=== PATIENT | female | born 1970 | race Caucasian/White ===

== ENCOUNTER 2021-02-15 11:17 | Emergency (ER) | payer MEDICARE, MEDICAID, SELFPAY ==
--- NOTE | 2021-02-15 11:24 | ED.URI ---
HPI - URI/Sore Throat General Chief Complaint: Upper Respiratory Infection Stated Complaint: Possible sinus and right Ear infection Time Seen by Provider: 02/15/21 11:39 Source: patient and RN notes reviewed Mode of arrival: ambulatory Limitations: no limitations History of Present Illness HPI Narrative: 50-year-old female presents concern for two 3-day history of sinus pressure, nasal drainage, postnasal drainage, cough. She reports low-grade temperature and chills. Denies fever, body aches, sweats. She denies [id number] intervention. MD elicited complaint: nasal congestion Related Data Home Medications Medication Instructions Recorded Confirmed escitalopram oxalate mg 02/15/21 hydrocodone-acetaminophen tablet 02/15/21 lamotrigine 02/15/21 lorazepam 02/15/21 lurasidone [Latuda] mg 02/15/21 omeprazole 02/15/21 simvastatin mg 02/15/21 trazodone 02/15/21 Allergies Allergy/AdvReac Type Severity Reaction Status Date / Time No Known Allergies Allergy Verified 02/15/21 11:37 Review of Systems Review of Systems: Narrative: CONSTITUTIONAL: Denies malaise, sweats. Reports chills and fever. EYES: Denies visual changes, redness, or discharge. ENT: Reports rhinorrhea, congestion, sinus pain, otalgia. Denies sore throat. CARDIOVASCULAR: Denies chest pain, palpitations, or edema. RESPIRATORY: Reports cough. Denies dyspnea. GASTROINTESTINAL: Denies abdominal pain, nausea, vomiting, diarrhea SKIN: Denies rash or itching. MUSCULOSKELETAL: Denies myalgia. NEUROLOGIC: Denies headache.. All systems reviewed & are unremarkable except as noted in HPI and below PMFSH Comments At time of signature, agree with nursing past medical, surgical, social and family history. There is no relevant family history pertinent to the presenting complaint Exam Narrative: Exam Narrative: GENERAL: Well-appearing, well-nourished, and in no acute distress. HEAD: Normocephalic EYES: PERRLA, conjunctivae clear ENT: Nares clear, turbinates pink, clear discharge. Mucous membranes moist. TM pearly rome with dull light reflex bilaterally; no tragal tenderness. Oropharynx not erythematous without lesions. Tonsils not enlarged and without exudate, no drooling, no hoarseness, no trismus, uvula midline. NECK: Supple. No lymphadenopathy CHEST: Clear to auscultation, breath sounds equal. No wheezing, rhonchi, rales, or stridor. No respiratory distress, speaks in full sentences. HEART: Regular rate and rhythm. No murmur heard. SKIN: Warm, dry, no rash. NEURO: Alert and oriented x3. PSYCH: Normal mood and affect Course Course Emergency Course: Patient is aware of diagnosis, understands and agrees to treatment plan. Anticipatory guidance given. Patient agrees to follow-up as directed and is aware of reasons to seek care at the emergency department. Portions of this record may have been created with voice recognition software Vital Signs Vital signs: Vital Signs Temperature 99.0 F 02/15/21 11:28 Pulse Rate 91 02/15/21 11:28 Respiratory Rate 18 02/15/21 11:28 Blood Pressure 122/86 02/15/21 11:28 Pulse Oximetry 99 02/15/21 11:28 Temperature 99.0 F 02/15/21 11:28 Pulse Rate 91 02/15/21 11:28 Respiratory Rate 18 02/15/21 11:28 Blood Pressure 122/86 02/15/21 11:28 Pulse Oximetry 99 02/15/21 11:28 Reviewed. Patient has been instructed to follow up with her primary care provider within the next week regarding her elevated blood pressure today. MDM - URI/Sore Throat MDM Narrative Medical decision making narrative: Differential diagnosis considered: Tony virus, strep pharyngitis, allergic rhinitis, upper respiratory tract infection, sinusitis, rhinosinusitis, nasopharyngitis. viral pharyngitis, otitis media, otitis externa, pneumonia, bronchitis, viral cough syndrome, viral syndrome, and influenza. Exam findings show no acute concerns or changes; patient is non-toxic appearing and is in no distress. Patient is appr
[2021-02-15 11:28] VITALS: BP 122/86; PULSE 91; RESP 18; TEMP 37.2; O2SAT 99
== END 2021-02-15 11:50 | disposition home or self-care (01) ==
PROVIDERS: Emergency Provider Nurse Practitioner
DX: J06.9 Acute upper respiratory infection, unspecified (principal); Z96.643 Presence of artificial hip joint, bilateral
CPT/HCPCS: 99203; G0463

== ENCOUNTER 2023-09-10 17:51 | Emergency (ER) | payer MEDICARE, MEDICAID, SELFPAY ==
--- NOTE | ~2023-09-10 | XR_ITS ---
Clinical Indication: Cough, congestion PA and lateral views of the chest: Comparison: None Findings: Small right pleural effusion present. Left lung clear.. Cardiomediastinal silhouette is wi thin normal limits. Bones and soft tissues are unremarkable. Impression: Small right pleural effusion. Reviewed, dictated and finalized at [facility]. BILITATION DIRECTOR Impression: Small right pleural effusion.
[2023-09-10 17:56] VITALS: BP 127/87; PULSE 102; RESP 20; TEMP 37.3; O2SAT 94
--- NOTE | 2023-09-10 18:19 | ED.URI ---
HPI - URI/Sore Throat General Chief Complaint: Upper Respiratory Infection Stated Complaint: fever,cough,hurting all over Time Seen by Provider: 09/10/23 18:10 Source: patient, RN notes reviewed and old records reviewed Mode of arrival: ambulatory Limitations: no limitations History of Present Illness HPI Narrative: 52 year old female who presents to [facility] care with complaints of fever,cough since yesterday with shortness of breath with home pulse oximetry running below 90% at times.She states that she has also as some body aches and nasal congestion,and patient reports that she has an inhaler and has been using her inhaler and also has taken some [place] cold and flu. Patent reports that she has smoked 3 cigarettes today where she usually smokes a pack daily. Patient reports that she is on daily pain medication for severe osteoarthritis and has had previous bilateral hip replacements. MD elicited complaint: cough and sore throat Pertinent past history: pneumonia and other (tobacco use) Onset (ago): day(s) (since yesterday evening.) Consistency: constant Severity: moderate Pain scale (0-10): 4 Description of mucous: green Able to tolerate fluids by mouth: Yes Exacerbating factors: exertion Treatments prior to arrival: other (inhaler, Kira [place] cold and flu) Related Data Home Medications Medication Instructions Recorded Confirmed escitalopram oxalate 20 mg tablet mg 02/15/21 hydrocodone 10 mg-acetaminophen tablet 02/15/21 325 mg tablet lamotrigine 150 mg tablet 02/15/21 lorazepam 2 mg tablet 02/15/21 lurasidone 60 mg tablet (Latuda) mg 02/15/21 omeprazole 40 mg capsule,delayed 02/15/21 release simvastatin 20 mg tablet mg 02/15/21 trazodone 150 mg tablet 02/15/21 alendronate 35 mg tablet mg PO 09/10/23 amlodipine 5 mg tablet mg 09/10/23 cyclobenzaprine 10 mg tablet mg 09/10/23 Allergies Allergy/AdvReac Type Severity Reaction Status Date / Time triamcinolone [From Kenalog] Allergy Unknown Verified 09/10/23 18:01 Review of Systems Review of Systems: CONSTITUTIONAL: Reports malaise, chills, sweats, low grade fevers EYES: Denies visual changes, redness, or discharge. ENT: Reports rhinorrhea, congestion, sinus pain,no otalgia and no sore throat. CARDIOVASCULAR: Denies chest pain, palpitations, or edema. RESPIRATORY: Reports cough.? Reports some dyspnea and wheezing.. GASTROINTESTINAL: Denies abdominal pain, nausea, vomiting, diarrhea SKIN: Denies rash or itching. MUSCULOSKELETAL: reports some myalgia. NEUROLOGIC: Denies headache. All systems reviewed & are unremarkable except as noted in HPI and below PMFSH Past Medical History Medical History (Updated 09/10/23 @ 19:05 by Marisol Romero NP) Anxiety Arthritis Back pain Bipolar disorder Pneumonia Surgical History Surgical History (Updated 09/10/23 @ 19:05 by Marisol Romero NP) History of bilateral hip replacements History of tubal ligation Previous section Social History Social History (Updated 09/10/23 @ 18:33 by Marisol Romero NP) Smoking packs per day: 1 Smoking cigarettes per day: 20.0 Years smoked: 20 Smoking pack-years: 20.00 Smoking status: Current every day smoker Tobacco type: cigarettes Comments At time of signature, agree with nursing past medical, surgical, social and family history. There is no relevant family history pertinent to the presenting complaint Exam Narrative: GENERAL: Well-appearing, well-nourished, and in no acute distress. HEAD: Normocephalic EYES: PERRLA, conjunctivae clear ENT: Nares clear, turbinates edematous and erythematous, yellow discharge. Mucous membranes moist. TM pearly rome with dull light reflex bilaterally; no tragal tenderness. Oropharynx erythematous without lesions. Tonsils not enlarged and without exudate, no drooling, no hoarseness, no trismus, uvula midline. NECK: Supple. No lymphadenopathy CHEST: scattered whe
== END 2023-09-10 18:58 | disposition home or self-care (01) ==
PROVIDERS: Emergency Provider Registered Nurse; PCP Family Medicine
DX: J90 Pleural effusion, not elsewhere classified (principal); R06.2 Wheezing; F17.210 Nicotine dependence, cigarettes, uncomplicated; M19.90 Unspecified osteoarthritis, unspecified site
CPT/HCPCS: 71046; 99213; G0463

== ENCOUNTER 2024-06-26 09:49 | Emergency (ER) | payer OTHER, SELFPAY ==
--- NOTE | ~2024-06-26 | XR_ITS ---
EXAMINATION: XR chest 2V DATE: 06/26/2024 11:00 INDICATION: Increased work of breathing. TECHNIQUE: Frontal and lateral views of the chest were obtained. COMPARISON: Chest 2 views 09/10/2023 FINDINGS: There is mild atelectasis versus scarring at right lung base. No pleural effusion or pneumo thorax. The heart size is normal. IMPRESSION: 1. Stable mild atelectasis versus scarring at right lung base. Reviewed, dictated and finalized at location B.
[2024-06-26 10:02] VITALS: BP 123/84; PULSE 84; RESP 20; TEMP 36.8; O2SAT 100
--- NOTE | 2024-06-26 10:46 | ED_ITS ---
HPI - URI/Sore Throat General Chief Complaint: Upper Respiratory Infection Stated Complaint: Cough/ Poss Pneumonia Time Seen by Provider: 06/26/24 10:46 Source: patient, RN notes reviewed and old records reviewed Mode of arrival: ambulatory Limitations: no limitations History of Present Illness HPI Narrative: 53-year-old female to Express Care with complaint of productive cough with rome / yellow sputum, feeling feverish, sinus congestion, fatigue, wheezing for 2 days. Patient reports smoking half pack per day for 20 years and history of pneumonia. The patient has attempted to treat at home with of as [place] cold and flu, albuterol inhaler. Patient resting uncomfortably in exam room, appears tired and acutely ill. Respirations even nonlabored. Patient in no acute distress. Related Data Home Medications Medication Instructions Recorded Confirmed escitalopram oxalate 20 mg tablet mg 02/15/21 lamotrigine 150 mg tablet 02/15/21 lorazepam 2 mg tablet 02/15/21 lurasidone 60 mg tablet (Latuda) mg 02/15/21 omeprazole 40 mg capsule,delayed 40 mg PO DAILY 02/15/21 06/26/24 release simvastatin 20 mg tablet 20 mg PO DAILY 02/15/21 06/26/24 trazodone 150 mg tablet 02/15/21 alendronate 35 mg tablet mg PO 09/10/23 amlodipine 5 mg tablet mg 09/10/23 cyclobenzaprine 10 mg tablet mg 09/10/23 clonazepam 2 mg tablet 2 mg PO BID 06/26/24 06/26/24 lurasidone 80 mg tablet 80 mg PO DAILY 06/26/24 06/26/24 Allergies Allergy/AdvReac Type Severity Reaction Status Date / Time triamcinolone [From Kenalog] Allergy Unknown Verified 06/26/24 10:10 Review of Systems Review of Systems: All systems reviewed & are unremarkable except as noted in HPI and below Constitutional: Constitutional: Reports as per HPI, Reports fatigue and Reports fever(s) Eyes: Eyes: Reports no additional eye complaints ENT: Reports system reviewed and no additional complaints, except as documented Cardiovascular: Cardiovascular: Reports no additional cardiovascular complaints, Denies chest pain and Denies dyspnea Respiratory: Respiratory: Reports no additional respiratory complaints, Reports change in phlegm color ( Yellow/rome), Reports cough, Denies dyspnea and Reports wheezing Musculoskeletal: Musculoskeletal: Reports no additional musculoskeletal complaints Neurologic: Reports system reviewed and no additional complaints, except as documented Psychiatric: Psychiatric: Reports no additional psychiatric complaints PMFSH Past Medical History Medical History Anxiety Arthritis Back pain Bipolar disorder Pneumonia Surgical History Surgical History History of bilateral hip replacements History of tubal ligation Previous section Social History Social History Smoking packs per day: 1 Smoking cigarettes per day: 20.0 Years smoked: 20 Smoking pack-years: 20.00 Smoking status: Current every day smoker Tobacco type: cigarettes Comments At the time of my signature, I reviewed and agree with the nursing past medical, surgical, social, and family history. There is no relevant family history pertinent to the patient complaint. Exam Const: General: cooperative, no acute distress, alert, ill appearing acutely, tired appearing, uncomfortable and well nourished Nutritional Appearance: well nourished Orientation/consciousness: patient oriented x3 Limitations: no limitations HENMT: Head: normal to inspection Ears: external ears normal Face/Nose/Sinus: Normal external nose present, Normal nares present, normal facial exam, No erythema and No edema Face and sinus: normal facial exam, no erythema and no edema Mouth: Yes Normal oral and palatal mucosa present Eyes: General: appearance normal, both eyes and all related structures Neck: Neck: normal visual inspection, full ROM and no meningeal signs Lymphatic: no lymphadenopathy noted and no lymphedema noted Chest: Chest palpation & inspection: normal inspection of the chest Resp: Effort & Inspection: normal respiratory effort and able to speak in complete sentences Auscultation: clear to auscultation bilaterally ( course throughout) Cardio: Jugular venous distension: no JVD Rate: regular rate Rhythm: regular rhythm Back/Spine/Pelvis: Cervical Spine: cervical ROM normal Skin: General skin exam: normal color, no rashes or lesions noted and turgor normal Neuro: General: patient oriented x3, gait normal, moves all extremities and no meningeal signs Speech: normal speech Gait exam (Neuro): Normal gait present Extrem: General: normal to inspection, full ROM and capillary refill normal Psych: Appearance: grossly normal and well kempt Course Course Emergency Course: Some parts of this dictation were generated by voice recognition software and may contain typographical and/or grammatical inaccuracies. Level of Care: Express Care Visit Vital Signs Vital signs: Vital Signs Temperature 36.8 C 06/26/24 10:02 Pulse Rate 84 06/26/24 10:02 Respiratory Rate 20 06/26/24 10:02 Blood Pressure 123/84 06/26/24 10:02 Pulse Oximetry 100 06/26/24 10:02 Oxygen Delivery Room Air 06/26/24 10:02 Temperature 36.8 C 06/26/24 10:02 Pulse Rate 88 06/26/24 11:27 Respiratory Rate 20 06/26/24 11:15 Blood Pressure 123/84 06/26/24 10:02 Pulse Oximetry 95 06/26/24 11:27 Oxygen Delivery Room Air 06/26/24 10:02 reviewed MDM - URI/Sore Throat MDM Narrative Medical decision making narrative: 53-year-old female to Express Care with complaint of productive cough with rome / yellow sputum, feeling feverish, sinus congestion, fatigue, wheezing for 2 days. Patient reports smoking half pack per day for 20 years and history of pneumonia. The patient has attempted to treat at home with of as [place] cold and flu, albuterol inhaler. Patient resting uncomfortably in exam room, appears tired and acutely ill. Respirations even nonlabored. Patient in no acute distress. on exam, patient appears tired, acutely ill, uncomfortable, cough present. On auscultation, coarse lung sounds throughout bilateral nicole. DuoNeb and chest x-ray completed in clinic. Patient reports little relief with DuoNeb. Radiology impression: Stable mild atelectasis versus scarring at right lung base. Patient is sitting uncomfortably in exam room nontoxic in appearance. Patient appropriate for outpatient treatment and follow-up. Discharge instructions reviewed with patient, as well as provided in writing per nursing staff. The instructions also include specific and strict return/GO TO THE ER as well as f/u information. All questions have been answered, and the patient deny any further questions with discharge and discharge plan. Some parts of this dictation were generated by voice recognition software and may contain typographical and/or grammatical inaccuracies. Differential Diagnosis Differential diagnosis: Likely upper respiratory infection, croup, otitis media, sinusitis, viral infection, bronchitis, influenza and pharyngitis Imaging Data Radiologist's impression: EXAMINATION: XR chest 2V DATE: 06/26/2024 11:00 INDICATION: Increased work of breathing. TECHNIQUE: Frontal and lateral views of the chest were obtained. COMPARISON: Chest 2 views 09/10/2023 FINDINGS: There is mild atelectasis versus scarring at right lung base. No pleural effusion or pneumothorax. The heart size is normal. IMPRESSION: 1. Stable mild atelectasis versus scarring at right lung base. Discharge Plan Discharge Clinical Impression: Cough Patient Disposition: Home, Self-Care Condition: Stable Additional Instructions: -Alternate Tylenol and Motrin per package directions for fever or pain. -Antihistamine medication such as Benadryl at night and Zyrtec/Claritin/Gale during the day can help improve symptoms. -Use Flonase twice a day for 5 days then daily to help reduce the inflammation and dry up your sinuses. -You can also use Sudafed or Mucinex. Be sure to drink plenty of water with these medications at least 8 ounces with every dose and it is important to drink 8 to 10 glasses of water per day. Water is a natural decongestant -Eat and drink things that are easy to swallow, like tea or soup, or popsicles. -Oral rinses such as: Salt water gargles and/or may use topical anesthetic (eg. Chloraseptic spray) or lozenges to relieve dryness or throat pain). -Frequent hand washing or hand loan approver is one of the best ways to prevent spread of infection. -Using a vaporizer or humidifier at night will also help thin secretions and help with coughing up phlegm. -Follow up with primary care provider in 2-3 days if condition is not improving; or seek ER visit if you have trouble breathing, cannot drink enough fluids, have muffled voice, difficulty opening your mouth, or severe swelling. Prescriptions: New azithromycin 250 mg tablet 250 mg PO DAILY Qty: 6 0RF Rx Instructions: 250 mg orally. Take TWO tablets today, then one tablet daily for 4 days. No Action lamotrigine 150 mg tablet omeprazole 40 mg capsule,delayed release(DR/EC) 40 mg PO DAILY lorazepam 2 mg tablet simvastatin 20 mg tablet 20 mg PO DAILY trazodone 150 mg tablet escitalopram oxalate 20 mg tablet Latuda 60 mg tablet clonazepam 2 mg tablet 2 mg PO BID lurasidone 80 mg tablet 80 mg PO DAILY cyclobenzaprine 10 mg tablet amlodipine 5 mg tablet alendronate 35 mg tablet PO Follow-up/Referrals: Gt,Jose Guadalupe Moncada MD [Primary Care Provider] - Stand Alone Forms: Work/School Release IP
[2024-06-26] MEDS: IPRATROPIUM 0.5 MG/ALBUTEROL SULFATE 2.5 MG AMPUL.NEB 3 ML INHALATION (11:02)
[2024-06-26 11:15] VITALS: PULSE 88; RESP 20; O2SAT 95
[2024-06-26 11:27] VITALS: PULSE 88; O2SAT 95
== END 2024-06-26 11:35 | disposition home or self-care (01) ==
PROVIDERS: Emergency Provider Nurse Practitioner Family; PCP Family Medicine
DX: R05.9 Cough, unspecified (principal); F17.210 Nicotine dependence, cigarettes, uncomplicated; M19.90 Unspecified osteoarthritis, unspecified site; F41.9 Anxiety disorder, unspecified; F31.9 Bipolar disorder, unspecified
CPT/HCPCS: 71046; 94640; 99213; G0463